=== PATIENT | male | born 1955 | race African-American/Black ===

== ENCOUNTER 2020-02-02 14:19 | Inpatient (IN) | payer MEDICAID, MEDICARE ==
[~2020-02-02] VITALS: Ht 182.9 cm; Wt 75.7 kg
[2020-02-02] MEDS ORDERED: NALOXONE PREFILLED SYRINGE 2 MG/2 ML SYRINGE ONE (14:35)
--- NOTE | 2020-02-02 14:35 | NUR ---
BIBA RA 86 From Home "Chest pain started yesterday on/off more constant now Given 324 AsA and 1 Nitro spray" Patient a/ox4, breathing even and unlabored, appears to be sleepy, can barely keep eyes open, attached to the school lunch monitor. Iv line present on left ac g18.
[2020-02-02] MEDS ORDERED: BENA40TA8 MT (14:37)
[2020-02-02] MEDS ORDERED: GABA-532 MT (14:37)
[2020-02-02] MEDS ORDERED: AMLO5TAB9 MT (14:37)
[2020-02-02] MEDS ORDERED: FLUP10TA12 MT (14:37)
[2020-02-02] MEDS ORDERED: MIRT7.5T10 MT (14:37)
[2020-02-02] MEDS ORDERED: ATOR20TA PO (14:37)
[2020-02-02] MEDS ORDERED: PREG100C55 MT (14:37)
[2020-02-02] MEDS ORDERED: KETOROLAC TROMETHAMINE 15 MG/ML VIAL ONE (14:45)
[2020-02-02] MEDS ORDERED: ONDANSETRON HCL/PF 4 MG/2 ML VIAL ONE (14:45)
[2020-02-02] MEDS ORDERED: ASPIRIN 325 MG TABLET PO ONE (15:00)
[2020-02-02] MEDS ORDERED: KETOROLAC TROMETHAMINE INJ 30 MG/ML VIAL IV ONE (15:00)
[2020-02-02] MEDS ORDERED: ONDANSETRON HCL/PF 4 MG/2 ML VIAL IV ONE (15:00)
[2020-02-02] MEDS ORDERED: NALOXONE HCL 0.4 MG/ML AMPUL IV ONE (15:00)
[2020-02-02] MEDS ORDERED: IV NS 0.9% 500 ML BAG IV ONE (15:00)
[2020-02-02 15:05] LABS: BASOPHILS % (AUTO) 0.3 % (0.0-2.0); EOSINOPHILS % (AUTO) 0.2 % (0.0-6.0); HEMATOCRIT 41 % (39-51); LYMPHOCYTES # (AUTO) 1.7 /CMM (0.8-4.8); LYMPHOCYTES % (AUTO) 24.8 % (20.0-44.0); MEAN CORPUSCULAR HGB CONC 35 g/dl (31.0-36.0); MEAN CORPUSCULAR VOLUME 95 fL (80-96); MONOCYTES # (AUTO) 0.5 /CMM (0.1-1.30); MONOCYTES % (AUTO) 6.6 % (2.0-12.0); NEUTROPHILS # (AUTO) 4.8 /CMM (1.8-8.9); NEUTROPHILS % (AUTO) 68.1 % (43.0-81.0); PLATELET COUNT (AUTO) 155 /CMM (150-450); RED BLOOD CELL COUNT(AUTO) 4.27 MIL/uL (4.5-6.0)
[2020-02-02 15:20] LABS: CALCIUM, SERUM 8.5 mg/dL (8.5-10.1); CARBON DIOXIDE 28 mmol/L (21-32); CHLORIDE 100 mmol/L (98-107); CREATININE 1.1 mg/dL (0.6-1.3); GLUCOSE 100 mg/dL (74-106); SODIUM SERUM 140 mmol/L (136-145); UREA NITROGEN, BLOOD 12 mg/dL (7-18)
[2020-02-02 15:22] LABS: POTASSIUM 2.8 mmol/L (3.5-5.1)
[2020-02-02 15:26] LABS: ALANINE AMINOTRANSFERASE 13 U/L (12-78); ALBUMIN 3.4 g/dL (3.4-5.0); ALKALINE PHOSPHATASE 43 U/L (46-116); ASPARTATE AMINOTRANSFERASE 17 U/L (15-37); BILIRUBIN,DIRECT 0.1 mg/dL (0.0-0.2); BILIRUBIN,TOTAL 0.3 mg/dL (0.2-1.0); LIPASE 48 U/L (73-393)
[2020-02-02] MEDS ORDERED: Magnesium 1GM/D5W 100ML PREMIX 200 ML IV ONE (15:36)
[2020-02-02] MEDS ORDERED: POTASSIUM CL. PREMIX PERIPHER. 200 ML ONE (15:36)
[2020-02-02 15:41] LABS: BILIRUBIN,URINE Negative (NEGATIVE); BLOOD, URINE Negative Ery/uL (NEGATIVE); COLOR,URINE Yellow (YELLOW); KETONES,URINE Negative (NEGATIVE); LEUKOCYTE ESTERASE ,URINE Negative (NEGATIVE); NITRITE, URINE Negative (NEGATIVE); PH,URINE 5.5 (5.0-8.0); PROTEIN,URINE Negative (NEGATIVE); UGLUCOSE Negative (NEGATIVE); UROBILINOGEN,URINE 0.2 EU/dL (0.2)
[2020-02-02 15:44] LABS: APPEARANCE,URINE CLEAR (CLEAR)
[2020-02-02] MEDS ORDERED: ERGO500014 MT (15:49)
[2020-02-02] MEDS ORDERED: ASPI-1420 MT (15:49)
[2020-02-02] MEDS ORDERED: HYDR25TA4 MT (15:49)
[2020-02-02] MEDS ORDERED: PALI156D IM (15:49)
--- NOTE | 2020-02-02 15:53 | NUR ---
TURNED MOVE SHEET, AND PAGED GEOVANNY CALIXTO
[2020-02-02] MEDS: POTASSIUM CL. PREMIX PERIPHER. 50 ML IV SCH ×4 (15:55→19:54)
[2020-02-02] MEDS: Magnesium 1GM/D5W 100ML PREMIX 100 ML IV SCH ×2 (15:55→17:03)
--- NOTE | 2020-02-02 16:28 | NUR ---
PATIENT RESTING, ASLEEP BUT EASILY AROUSABLE. NO DISTRESS NOTED. VITALS STABLE.
--- NOTE | 2020-02-02 16:34 | NUR ---
PAGED EPIC FOR GEOVANNY CALIXTO.
--- NOTE | 2020-02-02 17:32 | NUR ---
CALLED HOUSE SUP FOR TELEBED.
--- NOTE | 2020-02-02 18:00 | NUR ---
TELE BED 322-2
--- NOTE | 2020-02-02 18:14 | NUR ---
REPORT GIVEN TO APOLONIA KELLY FOR PARRISH.
--- NOTE | 2020-02-02 18:43 | NUR ---
PATIENT TRANSFERRED TO ROOM 322-2 VIA ACLS PROTOCOL. A/OX4, BREATHING EVEN AND UNLABORED, NO SOB NOTED, NEEDS ATTENDED, PATIENT IN STABLE CONDITION. ENDORSED TO APOLONIA RE: LAST IV BAG OF POTASSIUM.
[2020-02-02 19:00] VITALS: BP 160/110
--- NOTE | 2020-02-02 19:00 | NUR ---
TELE/RN NOTE Patient received from ER via gurney, transferred to bed safely. Patient resting in bed, A&O x 4. Breathing even and non-labored on RA. No respiratory or cardiac distress noted. Denies any pain/discomfort at this time, last pain med taken at ER. On tele monitor, reading SR HR 75. IV access noted on L AC #18, patent and intact, and flushing well. IV access on R AC #18, patent and intact, and running potassium bag at 50 mls/hr. No s/s of infiltration, infection, or bleeding noted. Sensation from all peripheral extremities intact. Gait is unsteady, assisted patient to ambulate to the bathroom and back to bed. Bed locked to its lowest position, side rails x 2 up, bed alarm on, call light in reach. Instructed patient to use call light when in need of assistance. VS taken, BP noted to be very high at 160/110, notified Dr. Acosta, ordered hydralazine 25 mg po x 1. Order carried out. Will endorse to shift supervisor film processing nurse for continuity of care.
--- NOTE | 2020-02-02 19:20 | NUR ---
ROTOR PILOT OPENING NOTES: RECEIVED PATIENT IN BED AWAKE, A/O X4. NO S/S DISTRESS NOTED. NO COMPLAIN OF PAIN. CALL LIGHT WITHIN REACH. BED IN LOWEST AND LOCKED POSITION. INSTRUCTED TO CALL WHEN OOB TO THE BATHROOM, PATIENT VERBALIZED UNDERSTANDING. URINAL PROVIDED AT THE BEDSIDE. PATIENT VOIDED WITH CLEAR YELLOW URINE.
[2020-02-02] MEDS ORDERED: hydrALAZINE HCL 25 MG TABLET PO SCH (19:30)
[2020-02-02 20:00] VITALS: BP 161/110
[2020-02-02] MEDS ORDERED: Z GUARD REMEDY 2 OZ OINT TP PRN (21:30)
[2020-02-02] MEDS ORDERED: ZOLPIDEM TARTRATE 5 MG TABLET PO PRN (21:30)
[2020-02-02] MEDS ORDERED: ENOXAPARIN SODIUM 40 MG/0.4 ML DISP.SYRIN SQ SCH (21:30)
[2020-02-02] MEDS ORDERED: ACETAMINOPHEN 325 MG TABLET PO PRN (21:30)
[2020-02-02] MEDS ORDERED: ONDANSETRON HCL/PF 4 MG/2 ML VIAL IVP PRN (21:30)
[2020-02-02] MEDS ORDERED: ATORVASTATIN 10 MG TABLET PO SCH (22:00)
[2020-02-02] MEDS ORDERED: MIRTAZAPINE 15 MG TABLET PO SCH (22:00)
--- NOTE | 2020-02-02 22:16 | NUR ---
PATIENT REFUSED TO BE SKIN ASSESSED. PATIENT STATED THAT HIS SKIN IS INTACT.
[2020-02-03] VITALS: BP 150/105
--- NOTE | 2020-02-03 00:55 | NUR ---
INFORMED DR ILNCOLN RE: VR=[phone].
[2020-02-03] MEDS ORDERED: hydrALAZINE HCL 25 MG TABLET PO SCH (01:30)
[2020-02-03 04:00] VITALS: BP 149/106
--- NOTE | 2020-02-03 05:04 | NUR ---
PATIENT'S LATEST YU=511/106, PULSE=68. INFORMED DR LINCOLN.
--- NOTE | 2020-02-03 06:52 | NUR ---
AIRLINE DISPATCHER CLOSING NOTES: PATIENT IN BED, ASLEEP. NO S/S DISTRESS NOTED. NO COMPLAIN OF PAIN. CALL LIGHT WITHIN REACH. BED IN LOWEST AND LOCKED POSITION.
[2020-02-03 06:57] LABS: BASOPHILS % (AUTO) 0.4 % (0.0-2.0); HEMATOCRIT 44 % (39-51); HEMOGLOBIN 14.5 g/dL (13.5-17.5); LYMPHOCYTES # (AUTO) 1.8 /CMM (0.8-4.8); LYMPHOCYTES % (AUTO) 37.3 % (20.0-44.0); MEAN CORPUSCULAR HGB CONC 33 g/dl (31.0-36.0); MEAN CORPUSCULAR VOLUME 95 fL (80-96); MONOCYTES # (AUTO) 0.4 /CMM (0.1-1.30); MONOCYTES % (AUTO) 8.8 % (2.0-12.0); NEUTROPHILS # (AUTO) 2.5 /CMM (1.8-8.9); NEUTROPHILS % (AUTO) 52.5 % (43.0-81.0); PLATELET COUNT (AUTO) 160 /CMM (150-450); RED BLOOD CELL COUNT(AUTO) 4.57 MIL/uL (4.5-6.0); WHITE BLOOD COUNT (AUTO) 4.9 K/uL (4.3-11.0)
--- NOTE | 2020-02-03 07:10 | NUR ---
SUPPORT ENGINEER OPENING NOTE RECEIVED PT AWAKE IN BED AT THIS TIME. AOX4. PT ON EXTERNAL TELE BRAKE REPAIR MECHANIC READING SB IN THE 50S. NO SOB NOTED, NO S/S OF ANY ACUTE DISTRESS NOTED. NO C/O PAIN AT THIS TIME. RESPIRATIONS ARE EVEN AND UNLABORED WITH EQUAL RISE AND FALL IN CHEST. IV ACCESS NOTED IN RIGHT HAND G#18 AND LAC G#18, BOTH PATENT, INTACT AND FLUSHING WELL. FALL AND SAFETY PRECAUTION IN PLACE AND MAINTAINED AT ALL TIMES. BED IN LOWEST LOCKED POSITION, HOB ELEVATED, RAILS UP X 2, CALL LIGHT WITHIN REACH. WILL CONTINUE TO MONITOR
[2020-02-03 07:14] LABS: ALBUMIN 3.2 g/dL (3.4-5.0); BILIRUBIN,TOTAL 0.5 mg/dL (0.2-1.0); CALCIUM, SERUM 8.4 mg/dL (8.5-10.1); CREATININE 0.8 mg/dL (0.6-1.3); MAGNESIUM 2.4 mg/dL (1.8-2.4); PHOSPHORUS 2.8 mg/dL (2.5-4.9); POTASSIUM 3.1 mmol/L (3.5-5.1); TOTAL PROTEIN, SERUM 6.7 g/dL (6.4-8.2)
[2020-02-03 07:20] LABS: THYROID STIMULATING HORMONE 1.229 uIU/mL (0.358-3.74)
[2020-02-03] MEDS ORDERED: ASPIRIN EC 81 MG TABLET.DR PO SCH (09:00)
[2020-02-03] MEDS ORDERED: ERGOCALCIFEROL (VITAMIN D 2) 50,000 UNIT CAPSULE PO SCH (09:00)
[2020-02-03] MEDS ORDERED: HYDROCHLOROTHIAZIDE 25 MG TABLET PO SCH (09:00)
[2020-02-03] MEDS ORDERED: AMLODIPINE BESYLATE 5 MG TABLET PO SCH (09:00)
[2020-02-03] MEDS ORDERED: BENAZEPRIL HCL 20 MG TABLET PO SCH (09:00)
[2020-02-03] MEDS: POTASSIUM CHLORIDE 20 MEQ TAB.PRT.SR PO SCH ×3 (09:31→12:10)
[2020-02-03] MEDS: hydrALAZINE HCL 50 MG TABLET PO SCH ×3 (09:32→16:17)
[2020-02-03] MEDS: GABAPENTIN 100 MG CAPSULE PO SCH ×2 (09:32→12:27)
[2020-02-03] MEDS: PREGABALIN 100 MG CAPSULE PO SCH ×2 (09:35→16:17)
[2020-02-03] MEDS: FLUPHENAZINE HCL 10 MG TABLET PO SCH ×2 (09:35→16:17)
--- NOTE | 2020-02-03 11:00 | NUR ---
PT TRANSPORTED BY WHEEL CHAIR AT THIS TIME FOR CT [facility] W/3D IMAGE. CONSENT FOR PROCEDURE AND CHECKLIST SIGNED BY PT AND FILED IN CHART. WILL CONTINUE WITH PLAN OF CARE
[2020-02-03] MEDS ORDERED: IOHEXOL-350 100 ML VIAL IV ONE (11:15)
[2020-02-03] MEDS ORDERED: IV NS 0.9% 250 ML IV ONE (11:16)
[2020-02-03] MEDS ORDERED: NITROGLYCERIN 0.4 MG/TAB BOTTLE ONE (11:21)
[2020-02-03] MEDS ORDERED: METOPROLOL TARTRATE INJ 5 MG/5 ML AMPUL ONE ×2 (11:21→11:46)
[2020-02-03] MEDS: METOPROLOL TARTRATE INJ 5 MG/5 ML AMPUL IVP PRN ×2 (11:23→11:28)
[2020-02-03] MEDS ORDERED: NITROGLYCERIN 0.4 MG/TAB BOTTLE SL ONE (11:30)
--- NOTE | 2020-02-03 11:43 | NUR ---
Report given to LETICIA Grove for PARRISH. Transported to [facility] via wheelchair.
--- NOTE | 2020-02-03 11:45 | NUR ---
PT TRANSPORTED BACK TO UNIT AT THIS TIME BY WHEEL CHAIR FROM [facility] W/3D IMAGE. WILL CONTINUE WITH PLAN OF CARE
[2020-02-03] MEDS: METOPROLOL TARTRATE 50 MG TABLET PO SCH ×2 (12:28→17:32)
[2020-02-03 16:15] VITALS: BP 125/97
[2020-02-03 17:32] VITALS: BP 128/96
--- NOTE | 2020-02-03 19:05 | NUR ---
MANUFACTURING DESIGN ENGINEER CLOSING NOTES PT AWAKE IN BED AT THIS TIME. PT REMAINED STABLE THROUGHOUT SHIFT. PT KEPT CLEAN AND DRY. ALL CARE, NEEDS, MEDICATION AND TREATMENT ADMINISTERED ANTICIPATED PER ORDER. SAFETY PRECAUTION IN PLACE AND MAINTAINED AT ALL TIMES. BED IN LOWEST LOCKED POSITION, HOB ELEVATED, RAILS UP X 2, CALL LIGHT WITHIN REACH. WILL ENDORSE TO LANDSCAPE ARCHITECTURE TEACHER NURSE FOR PARRISH
--- NOTE | 2020-02-03 19:11 | NUR ---
SENIOR UI SOFTWARE ENGINEER NOTES PT DISCHARGED TO HOME AT THIS TIME. PT IN STABLE CONDITION. ALL CARE, NEEDS, TREATMENT AND MEDICATIONS ADMINISTERED ANTICIPATED PER ORDER. PT KEPT CLEAN AND DRY. ALL DISCHARGE INSTRUCTIONS PROVIDED TO PT. PT VERBALIZED UNDERSTANDING. PT'S BELONGINGS ACCOUNTED FOR, SIGNED BY PT AND FILED IN CHART. IV REMOVED, PRESSURE APPLIED, SECURE WITH GAUZE AND TAPE. NO BLEEDING OR INFILTRATION NOTED. PT TRANSPORTED TO [facility] ON WHEEL CHAIR BY MADELINE HUIZAR. PT PICKED UP BY KATELYNN.
--- NOTE | 2020-02-03 19:19 | NUR ---
PATIENT D/C. IV ON THE LEFT AC REMOVED BY THE DAYSHIFT RN IMMACULATE.
== END 2020-02-03 19:05 | disposition home or self-care (01) | DRG 199 ==
LOC: ER 14:20 → TELE 18:06 → ICU 02-03 02:09 → TELE 02-03 02:37 → MED 02-03 10:42
PROVIDERS: ADMIT Nurse Practitioner Acute Care; ATTEND Nurse Practitioner Acute Care
DX: I16.0 Hypertensive urgency (principal); E87.6 Hypokalemia; I10 Essential (primary) hypertension; E78.00 Pure hypercholesterolemia, unspecified; F20.9 Schizophrenia, unspecified; E78.5 Hyperlipidemia, unspecified; Z79.82 Long term (current) use of aspirin; Z79.899 Other long term (current) drug therapy; G62.9 Polyneuropathy, unspecified; F32.9 Major depressive disorder, single episode, unspecified; I70.0 Atherosclerosis of aorta; Z87.891 Personal history of nicotine dependence
CPT/HCPCS: 36415; 71045-TC; 75574; 80048-TC; 80053-TC; 80061-TC; 80076-TC; 80305; 81000-TC; 83540-TC; 83690-TC; 83735-TC; 84100-TC; 84443-TC; 84484-TC; 85025-TC; 85730-TC; 87081-TC; C9803-CS; G0378; G0480; J1650; J1885; J2310; J2405; J3475; J3480; J3490; J7030; J7040; J7050; Q9967

== ENCOUNTER 2020-10-30 08:51 | Emergency (ER) | payer MEDICARE, MEDICAID ==
[~2020-10-30] VITALS: Ht 177.8 cm; Wt 74.8 kg
[~2020-10-30 08:51] MED LIST: AMLO-212 MT; ASPI-1420 MT; ATOR20TA PO; BENA40TA8 MT; ERGO500093 MT; FLUP10TA12 MT; GABA-532 MT; HYDR25TA4 MT; MIRT7.5T10 MT; PALI156D IM; PREG100C55 MT
--- NOTE | 2020-10-30 09:00 | NUR ---
bibra39, c/o both leg pain since yesterday 11/29 pain scale. Patient a/ox2, to self and current events but with episode of confusion, breathing even and unlabored, no sob noted. Needs attended.
--- NOTE | 2020-10-30 09:32 | NUR ---
ELEMENTARY ELL TEACHER AT BEDSIDE FOR BLOOD DRAW.
[2020-10-30 09:39] LABS: HEMOGLOBIN 13.6 g/dL (13.5-17.5); NEUTROPHILS # (AUTO) 3.8 /CMM (1.8-8.9)
[2020-10-30 09:42] LABS: BASOPHILS % (AUTO) 0.3 % (0.0-2.0); EOSINOPHILS % (AUTO) 0.3 % (0.0-6.0); HEMATOCRIT 40 % (39-51); LYMPHOCYTES # (AUTO) 1.5 /CMM (0.8-4.8); LYMPHOCYTES % (AUTO) 24.8 % (20.0-44.0); MEAN CORPUSCULAR HGB CONC 34 g/dl (31.0-36.0); MEAN CORPUSCULAR VOLUME 94 fL (80-96); MONOCYTES # (AUTO) 0.6 /CMM (0.1-1.30); MONOCYTES % (AUTO) 9.7 % (2.0-12.0); NEUTROPHILS % (AUTO) 64.9 % (43.0-81.0); PLATELET COUNT (AUTO) 180 /CMM (150-450); RED BLOOD CELL COUNT(AUTO) 4.23 MIL/uL (4.5-6.0); WHITE BLOOD COUNT (AUTO) 5.9 K/uL (4.3-11.0)
[2020-10-30 09:50] LABS: CALCIUM, SERUM 8.8 mg/dL (8.5-10.1); CARBON DIOXIDE 29 mmol/L (21-32); CHLORIDE 108 mmol/L (98-107); CREATININE 1.2 mg/dL (0.6-1.3); GLUCOSE 95 mg/dL (74-106); POTASSIUM 3.6 mmol/L (3.5-5.1); SODIUM SERUM 143 mmol/L (136-145); UREA NITROGEN, BLOOD 16 mg/dL (7-18)
--- NOTE | 2020-10-30 09:50 | NUR ---
HEAD FILTER TANK TENDER HELPER KIM AT BEDSIDE FOR CONSULT.
[2020-10-30 09:56] LABS: ACETAMINOPHEN 0 ug/ml (10-30); ALANINE AMINOTRANSFERASE 18 U/L (12-78); ALBUMIN 3.1 g/dL (3.4-5.0); ALCOHOL, BLOOD < 3 mg/dL (0-0); ALKALINE PHOSPHATASE 52 U/L (46-116); ASPARTATE AMINOTRANSFERASE 22 U/L (15-37); BILIRUBIN,DIRECT 0.1 mg/dL (0.0-0.2); BILIRUBIN,TOTAL 0.5 mg/dL (0.2-1.0); TOTAL PROTEIN, SERUM 6.8 g/dL (6.4-8.2)
--- NOTE | 2020-10-30 09:56 | NUR ---
PATIENT TAKEN TO RADIOLOGY FOR XRAYS.
[2020-10-30 10:11] LABS: BILIRUBIN,URINE Negative (NEGATIVE); COLOR,URINE YELLOW (YELLOW); LEUKOCYTE ESTERASE ,URINE Negative (NEGATIVE); NITRITE, URINE Negative (NEGATIVE); PH,URINE 5.5 (5.0-8.0); PROTEIN,URINE Negative (NEGATIVE); UGLUCOSE Negative (NEGATIVE); UROBILINOGEN,URINE 0.2 EU/dL (0.2)
[2020-10-30 10:12] LABS: BACTERIA,URINE Rare /HPF (None Seen); SQUAMOUS EPITHELIAL CELL,UR Rare /HPF (None Seen); WBC,URINE 0-2 /HPF (0-3)
--- NOTE | 2020-10-30 10:14 | NUR ---
UA AND COVID SWAB SENT
--- NOTE | 2020-10-30 10:55 | NUR ---
SS Consult: SS Consult requested for placement resources. The pt. is a 65-year old Black male. BRYANT met with pt. bedside. The pt. is a&o x3, pleasant and makes good eye contact. The pt.s peer advocate, Sondra Cobians [phone] from [facility] was at bedside. Per Sondra, the pt. currently lives in transitional housing and she would like to place the pt. is a B&C or any placement where he can get more assistance with cleaning, cooking for himself. Per pt. he is able to complete his ADLs independently. Pt. stated his family is out of state. BRYANT provided Sondra with New Lifestyles Guide to Jail & Care booklet and Contact information for Total [phone] placement agency. BRYANT emailed Sondra senior resources including SS application and list of caregivers. Sondra expressed understanding and stated she will assist pt. with placement with resources provided. BRYANT discussed case with Luna GIORDANO and SS Director, Nan. Per pt. is medically cleared. Sondra to provide transportation to pt.s current home. Resources provided include the following: ABUSE PREVENTION: ELDER ABUSE HOTLINE (13/12) ADULT PROTECTIVE SERVICES HOTLINE LONG-TERM CARE [facility] Region AREA ON AGING (HOTLINE) ADULT DAY HEALTH CARE CARE CENTERS: Private pay or [facility] funded adult day care [place] [facility] , [facility] Integration Services , [facility] , [facility] Adult [facility] Health Care , [facility] Adult Day Health Care , [facility] Adult Day[facility] Center , [place] [facility] , [facility] , [place] ALZHEIMERS DISEASE/DEMENTIA: Alzheimers Association Helpline [facility] Chapter www.alz.org/[facility] Department of Aging www.lacity.org Family Caregiver [place] www.caregiver.org [place] Caregiver Resources Center/Family Support www.[facility].org CANCER RESOURCES: [place] Cancer Society www.cancer.org Cancer Support Community www.CancerSupportVvsb.org: CancerCare www.cancercare.org [facility] Cancer Support [place] www.[facility].org [facility] HEALTH ASSOCIATIONS: AARP www.aarp.org ALS Association (ask for Marjorie) www.als.org Mong[place]ian Diabetes Association www.diabetes.org Mong[place] Heart Association www.heart.org Mong[place]ian Lung Association www.lungusa.org Mong[place]ian Parkinson Disease Association www.apdaparkinson.org Mongolian Millis-[place] , www.redcross.org Arthritis Foundation www.arthritis.org Crohns & Colitis Foundation of Mongolian www.ccfa.org/chapters/elsa National Multiple Sclerosis Society www.nationalmssociety.org Myasthenia Gravis Foundation www.myasthenia-ca.org National Stroke Association www.stroke.org CONSERVATORSHIP & GUARDIANSHIP: AARP Gisell Portillo Legal Services Center for Health Care Rights Eldercare Information and Referral Welder And Fitter [facility]: [facility] [place] Referral Service [facility] Legal Services Office of the Public Guardian [place] EYESIGHT DISORDER RESOURCES: [place] Macular Degeneration Foundation [facility] www.[facility] healthcaretitminneapolis.org GRIEF AND BEREAVEMENT RESOURCES: The [place] , [facility] THE HOPE Connection , [facility] Bereavement Center , [place] HEARING DISORDER RESOURCES: [place] Telephone Access Program Deaf and Disabled Telecommunications Program www.ddtp.[facility] sunset.ca.gov HearRx Hearing Centers ([place]) Better Hearing Systems , [place] GLAD ([facility] Agency on Deafness) V/ TTY; Electronics Scale Tester , [facility] Hearing [facility] -low income hearing aid assistance www.[facility] - andersonringfoundation.org [place] Hearing Care , Yu HELP AT HOME CAREGIVER SUPPORT: In Home Support Services (Must have Medi-Ayana to be eligible) *Ask for a list of agencies that provide services to assist with care in the home. Local Senior Centers also have listings of care providers. HOME SAFETY MODIFICATIONS AND EQUIPMENT: Senior centers have additional referrals. [place] Housing and Community Investment Dept. Handyworker Program (low income) or Visit http://hcidla.lacity.org/snp-lohcyg-am for more information National Seating and Mobility and/or ; Forever Active www.foreverMENA SOCIALmed.com Stay Home Safe www.Stayhomesafe.com LIFE ALERT RESPONSE SYSTEM: Capital [place] Services 366-028-8547 www. IceRocket Life Alert 512-805-6829 www.lifealert.Limbo Life Station 456-095-6967 www.RocketBankation.Limbo Safe Return 557-164-7231 www.alz.or/safereturn Cell Phones for Seniors www.ePropertyData MEALS AND FOOD PROGRAMS: [place] Meals on Wheels [phone] [place] Meals on Wheels [phone] [facility] [phone] [place] to the Homebound [phone] [place] to the Homebound [phone] [facility] to the Homebound [phone] [facility] to the Homebound [phone] [facility] Stephen Canela [phone] [facility] [phone] ONE Generation [phone] [facility] [phone] [facility] [phone] Meals on Wheels [phone] For all ages: $6.85/ meal w side. Delivered M-F from 10 am-1pm. Application and payment is done over the phone. Frozen meals available for weekends. Emergency Food [facility] [phone] [facility] Supervisor Cured Meats [phone] [facility] [phone] [facility]- Brown bag lunches [phone] [facility] [phone] MEAL/GROCERY DELIVERY PROGRAMS: [facility] Gourmet Meals [phone]- [facility] [phone]- [facility] Magic Kitchen [phone] Moms Meals [phone] (ask Hickman for Discount Select grocery stores may provide delivery. MEDICAL INSURANCE SUPPORT SERVICES: Center for Health Care Rights [phone] Health Insurance Counseling/Advocacy Programs (HICAP)-Must have Medicare. Offers counseling for Medi-Ayana eligibility [phone] Department of Public Supervisor Cured Meats 502-315-5378 www.[facility].ca.gov Medicare 521-756-0566 www.socialsecurity.org Social Security [phone] SENIOR ACTIVITY PROGRAMS: *Contact a local senior center, adult school, recreation facility or community [facility] for education, fitness, recreation, and social programs. Aquatic Therapy and Adapted Exercise programs through [facility] [phone] Encore at [facility] [phone] www.[facility]/encore H2U- Senior Friends [phone] [place] Senior Programs [phone] www.oasisnet.org Suddenly 65 www.hvtntupg43.com SENIOR CENTERS: [facility] [phone] [facility] [phone] [facility] [phone] [facility] [phone] [facility] [phone] [facility] [phone] [facility] [phone] [facility] [place] [phone] [facility] [phone] [facility] [phone] [facility] [phone] [facility] [phone] [facility] [phone] TRANSPORTATION: Local [facility] may have applications for transportation programs and additional resources. ACCESS Services [phone] Transportation for seniors and disabled persons 7 days a week requiring 254 hr. advance reservation. Must apply and register for program dhara eligible. [employer] RIDE [phone] or [phone] Transportation for seniors and persons with ADA card/metro disabled card in the [facility]. M-F only. Must register for services. ONE GENERATION [phone] Serves 65 years + in conjunction with city ride program. Must be registered with both programs. A to B Transport [phone] Provides wheelchair/gurney van service. Adult Medical Transport [phone] Accepts Medi-ayana with prior authorization. Care Van [phone] Provides wheelchair Transport. [facility] Wide Transportation [phone] Provides gurney service [facility] [phone] Gurney Transport[address] [facility] Transportation [phone] wheelchair & gurney transport D Transportation [phone] wheelchair & gurney transport [place] Non-Emergency Transport [phone] wheelchair & gurney transport [facility] Living [place] [phone] Short Term Transportation primarily for adults with disabilities on social security income. Nominal fee may apply and a reservation is required. [facility] [phone] or [phone] [facility] [phone] [place] [address] Referral Services -[phone] For additional programs & services VETERANS RESOURCES: Submissions for Aid and Attendance should be done directly to Federal VA office locatd at : [address] [address] X110 National Caregiver Support Line [phone] [facility] Veterans Services Field Office [phone] [place] Department of [place] Affairs [phone] Pension Information [phone]
--- NOTE | 2020-10-30 10:59 | NUR ---
PATIENT A/OX2-3, MANAGER QUALITY IMPROVEMENT AT BEDSIDE, PROVIDED WITH RESOURCES BY DOUBLE BACK OPERATOR RE: MEMORY CARE FACILITIES. Patient discharged to home in stable condition. Written and verbal after care instructions given to patient and internet webmaster and both verbalizes understanding of instruction. Patient is wheeled to the car.
[2020-10-30 11:02] VITALS: BP 126/84
== END 2020-10-30 11:03 | disposition home or self-care (01) ==
LOC: ER 08:52
DX: R41.82 Altered mental status, unspecified (principal); F17.210 Nicotine dependence, cigarettes, uncomplicated; I10 Essential (primary) hypertension; E78.00 Pure hypercholesterolemia, unspecified; Z79.82 Long term (current) use of aspirin; Z79.899 Other long term (current) drug therapy; M79.605 Pain in left leg; M79.604 Pain in right leg; Z91.81 History of falling
CPT/HCPCS: 36415; 70450-TC; 71045-TC; 73030-TC; 73564-TC; 80048-TC; 80076-TC; 81001; 84484-TC; 85025-TC; C9803; G0480